=== PATIENT | male | born 1995 | race Caucasian/White ===

== ENCOUNTER 2018-07-11 19:38 | Emergency (ER) | payer OTHER ==
[2018-07-11 19:56] VITALS: BP 160/58
[2018-07-11] MEDS ORDERED: IBUPROFEN 600 MG TAB PO ONE (20:11)
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
== END 2018-07-11 20:20 | disposition home or self-care (01) ==
LOC: CED 19:38
DX: S16.1XXA Strain of muscle, fascia and tendon at neck level, initial encounter (principal); S39.012A Strain of muscle, fascia and tendon of lower back, initial encounter; M79.622 Pain in left upper arm; V49.49XA Driver injured in collision with other motor vehicles in traffic accident, initial encounter; Y92.411 Interstate highway as the place of occurrence of the external cause; Y93.9 Activity, unspecified; Y99.9 Unspecified external cause status; Z87.891 Personal history of nicotine dependence
CPT/HCPCS: 99283-ER